=== PATIENT | female | born 1975 | race Caucasian/White ===

== ENCOUNTER 2023-01-25 16:53 | Emergency (ER) | payer MEDICAID ==
[2023-01-25 17:09] VITALS: BP 120/68; O2SAT 100
--- NOTE | 2023-01-25 17:25 | ED Physician Documentation ---
PD HPI UPPER EXT INJURY - Stated complaint Stated Complaint: LT WRIST INJ - Chief complaint Chief Complaint: Ext Problem - History obtained from History obtained from: Patient - Additonal information Additional information: In the beginning of October she injured her wrist. She had a scaphoid fracture. She was casted for about 2-1/2 months and was seeing an orthopedist there in [place] where she was living at the time, since then has returned here primary care she had the cast off for about a month and is having persistent pain of the wrist and wonder if it is healing correctly. No new injury. PD PAST MEDICAL HISTORY - Past Medical History Past Medical History: No Cardiovascular: None Respiratory: None Neuro: None Endocrine/Autoimmune: None GI: None CALL CENTRE SUPERVISOR: None : None HEENT: None Psych: None Musculoskeletal: None Derm: None - Past Surgical History Past Surgical History: Yes General: Appendectomy /CALL CENTRE SUPERVISOR: Breast implants - Present Medications Home Medications: Ambulatory Orders Medication Instructions Recorded Confirmed No Known Home Medications 01/25/23 01/25/23 - Allergies Allergies/Adverse Reactions: Allergies Allergy/AdvReac Type Severity Reaction Status Date / Time erythromycin base Allergy Rash Verified 01/25/23 17:00 gluten Allergy Hives Verified 01/25/23 17:01 egg AdvReac Hives Verified 01/25/23 17:01 lactose AdvReac Hives Verified 01/25/23 17:01 - Social History Does the pt smoke?: No Smoking Status: Never smoker Does the pt drink ETOH?: No Does the pt have substance abuse?: No - Immunizations Immunizations are current?: Yes PD ED PE NORMAL - Vitals Vital signs reviewed: Yes - General General: Alert and oriented X 3, No acute distress - Extremities Extremities: Other (Left wrist has relatively full range of motion and very mild tenderness in the snuffbox. No elbow tenderness.) - Neuro Neuro: Alert and oriented X 3, Normal speech Results - Vitals Vitals: Vital Signs - 24 hr 01/25/23 17:02 Temperature 37 C Heart Rate 53 L Respiratory 16 Rate Blood Pressure 120/68 O2 Saturation 100 Oxygen O2 Source Room air - Rads (name of study) 4 view left wrist x-ray showing nondisplaced scaphoid fracture with persistent fracture plane suggesting nonunion. Relevant Findings:: Final report received, EMP independent interpretation of test PD Medical Decision Making - ED course ED course: She has a 2-1/2-month-old or even almost 3-month-old scaphoid fracture with signs of incomplete healing on x-ray. Given the diagnosis I have recommended splinting which she declined, but I did impress upon her the importance of following up with a hand surgeon. Departure - Departure Disposition: 01 Home, Self Care Clinical Impression: Scaphoid fracture of wrist Condition: Good Record reviewed to determine appropriate education?: Yes Comments: As discussed, I have recommended full immobilization with fiberglass and you have declined preferring the removable splint you have at home. At a minimum you should follow-up with a hand surgeon for evaluation of this complex injury, the closest is in [place], call tomorrow for an appointment, Chris Brothers MD [phone] Forms: PCP List Discharge Date/Time: 01/25/23 18:10
--- NOTE | 2023-01-25 18:42 | XRAY Report ---
PROCEDURE: Wrist 4 View LT INDICATIONS: wrist inj, known scaphoid fracture October TECHNIQUE: 3 views of the wrist were acquired. COMPARISON: None. FINDINGS: Bones: There is a nondisplaced scaphoid waist fracture. The fracture plane is still well seen. No ot her fractures are visible. Mineralization of the scaphoid is relatively uniform. Soft tissues: No suspicious soft tissue calcifications or masses. IMPRESSION: Nondisplaced scaphoid fracture. Persistent fracture plane suggests developing nonunion. Normal mineralization throughout the scaphoid. No evidence of avascular necrosis. Reviewed by: Rissa Snyder MD on 01/25/2023 6:40 PM PDT Approved by: Rissa Snyder MD on 01/25/2023 6:40 PM PDT Station ID: [id number]
== END 2023-01-25 18:10 | disposition home or self-care (01) ==
LOC: ED 16:53
DX: S62.025K Nondisplaced fracture of middle third of navicular [scaphoid] bone of left wrist, subsequent encounter for fracture with nonunion (principal); X58.XXXD Exposure to other specified factors, subsequent encounter
CPT/HCPCS: 99283; 99284